=== PATIENT | female | born 1965 | race Caucasian/White ===

== ENCOUNTER 2021-02-07 10:19 | Day surgery (SDC) | payer BC, OTHER ==
[~2021-02-07 10:19] MED LIST: Lactated Ringers 1,000 ML IV SCH
[2021-02-07] MEDS ORDERED: fentaNYL 100 MCG/2 ML SDV ONE (11:19)
[2021-02-07] MEDS ORDERED: Midazolam 1 MG/ML 2 ML SDV ONE (11:19)
[2021-02-07] MEDS ORDERED: Propofol 200 MG/20 ML SDV ONE (11:19)
[2021-02-07 12:21] VITALS: BP 129/84; PULSE 71
--- NOTE | 2021-02-08 07:47 | OR ---
PREOPERATIVE DIAGNOSIS: Screening colonoscopy. POSTOPERATIVE DIAGNOSIS: Screening colonoscopy. PROCEDURE PERFORMED: Screening colonoscopy. COMPLICATIONS: None. SPECIMENS: 1 polyp at 30 cm. ESTIMATED BLOOD LOSS: None. PROCEDURE IN DETAIL: This was done in the endoscopy suite. Sedation was given per Anesthesia. She was placed in left lateral position. First, a rectal exam was done and was normal. Scope was introduced into the rectum and slowly advanced to the rectum, sigmoid, descending, transverse, and ascending colon until the cecum was reached. Upon reaching the cecum, scope was slowly withdrawn looking at all mucosal surfaces on the way out. No mucosal abnormalities, lesions, or polyps were noted except at 30 cm where a small polyp was found. It was removed by hot loop forceps. The remainder of the exam was normal. FINAL DIAGNOSIS: Polyp at 30 cm. FINAL PATHOLOGY: Pending. BKD: 02/07/2021 12:11:10 MODL: 02/07/2021 15:27:10 /[id number]
== END 2021-02-07 13:20 | disposition home or self-care (01) ==
LOC: VM.SDS 10:19
PROVIDERS: ATTEND Surgery
DX: Z12.11 Encounter for screening for malignant neoplasm of colon (principal); K63.5 Polyp of colon; F17.210 Nicotine dependence, cigarettes, uncomplicated; F32.5 Major depressive disorder, single episode, in full remission; E88.81 Metabolic syndrome and other insulin resistance; E66.9 Obesity, unspecified; Z68.32 Body mass index [BMI] 32.0-32.9, adult; Z88.0 Allergy status to penicillin; Z88.8 Allergy status to other drugs, medicaments and biological substances; Z91.040 Latex allergy status; Z86.010 Personal history of colon polyps
CPT/HCPCS: 00812; J2250; J2704; J3010; J7120